=== PATIENT | female | born 1945 | race Caucasian/White ===

== ENCOUNTER → 2018-01-29 | Outpatient (CLI) | payer OTHER ==
[~2018-01-29] MED LIST: ASPIRIN EC81 M1 PO; ASPIRIN325 PO; BACTRIM DS TAB1 EACH PO; CHOLESTEROL MED; DIAZEPAM2 MG PO; FLEXERIL PO; HYDROCODON-ACE1 EAC7 PO; HYDROCODONE-AP1 EAC6 PO; KEFLEX500 MG PO; LOPRESSOR50 PO; LOSARTAN-HCTZ1 EAC2 PO; MEDROLDOSEPACK PO; METOPROLOL SUCC25 M1 PO; NORCO 5-325 TA1 EACH PO; PERCOCET 5-3251 EACH PO; PRAVACHOL40 MG PO; PRILOSEC 20 MG20 MG PO; PRILOSEC40 MG PO; PRINIVIL10 MG; PRINZIDE 20-121 EACH PO; PROZAC20 MG PO; TRAMADOL 50 MG50 MG PO; WELLBUTRIN 75 M75 M1 PO; ZESTORETIC 20-1 EAC3 PO
== END ==
LOC: M.ULTRA 16:30
DX: M79.671 Pain in right foot (principal); M79.601 Pain in right arm; R60.1 Generalized edema

== ENCOUNTER → 2018-06-02 | Outpatient (CLI) | payer OTHER | LOC: M.MRI 13:30 | DX: M79.671 Pain in right foot (principal); M79.672 Pain in left foot; M10.9 Gout, unspecified; M65.871 Other synovitis and tenosynovitis, right ankle and foot; M25.474 Effusion, right foot; M19.071 Primary osteoarthritis, right ankle and foot; F32.9 Major depressive disorder, single episode, unspecified; Z90.49 Acquired absence of other specified parts of digestive tract; Z72.89 Other problems related to lifestyle ==

== ENCOUNTER → 2018-09-03 | Outpatient (CLI) | payer OTHER | LOC: M.ULTRA 11:00 | DX: R22.41 Localized swelling, mass and lump, right lower limb (principal) ==

== ENCOUNTER → 2019-07-05 | Outpatient (CLI) | payer OTHER | LOC: M.CT 06-23 08:05 | DX: I65.23 Occlusion and stenosis of bilateral carotid arteries (principal); R90.82 White matter disease, unspecified; R41.3 Other amnesia; M85.80 Other specified disorders of bone density and structure, unspecified site; M25.511 Pain in right shoulder; R29.898 Other symptoms and signs involving the musculoskeletal system; Z78.0 Asymptomatic menopausal state ==